=== PATIENT | male | born 1930 | race Caucasian/White ===

== ENCOUNTER 2017-02-28 13:44 | Observation (INO) | payer MEDICARE ==
[2017-02-28 14:13] LABS: ABSOLUTE EOSINOPHILS # (AUTO) 0.4 10^3/uL (0.0-0.6); ABSOLUTE LYMPHOCYTES (AUTO) 1.5 10^3/uL (0.5-4.7); ABSOLUTE MONOCYTES (AUTO) 0.4 10^3/uL (0.1-1.4); ABSOLUTE NEUT (AUTO) 2.5 10^3/uL (1.7-8.2); BASOPHILS % (AUTO) 0.7 % (0-2); EOSINOPHILS % (AUTO) 7.3 % (0-6); HEMATOCRIT 27.7 % (37.9-51.0); HEMOGLOBIN 9.1 g/dL (13.5-17.0); HGB HCT DIFFERENCE -0.4; LYMPHOCYTES % (AUTO) 31.5 % (13-45); MEAN CORPUSCULAR HEMOGLOBIN 32.9 pg (27.0-33.4); MEAN CORPUSCULAR HGB CONC 32.7 g/dL (32.0-36.0); MEAN CORPUSCULAR VOLUME 101 fl (80-97); MONOCYTES % (AUTO) 8.8 % (3-13); RED BLOOD COUNT 2.75 10^6/uL (4.35-5.55); RED CELL DISTRIBUTION WIDTH 16.1 % (11.5-14.0); SEGMENTED NEUTROPHILS % (AUTO) 51.7 % (42-78); WHITE BLOOD COUNT 4.9 10^3/uL (4.0-10.5)
[2017-02-28 14:15] LABS: VENOUS BLOOD BASE EXCESS -2.5 mmol/L; VENOUS BLOOD PCO2 42.7 mmHg (35-63); VENOUS BLOOD PH 7.35 (7.30-7.42)
[2017-02-28 14:20] LABS: PROTHROMBIN TIME 16.6 SEC (11.4-15.4)
[2017-02-28 14:33] LABS: ALANINE AMINOTRANSFERASE 28 U/L (21-72); ALBUMIN 3.5 g/dL (3.5-5.0); ALKALINE PHOSPHATASE 113 U/L (38-126); ANION GAP 11 (5-19); ASPARTATE AMINO TRANSFERASE 35 U/L (17-59); BILIRUBIN,DIRECT 0.3 mg/dL (0.0-0.4); BILIRUBIN,TOTAL 0.3 mg/dL (0.2-1.3); BLOOD UREA NITROGEN 38 mg/dL (7-20); CALCIUM 8.3 mg/dL (8.4-10.2); CARBON DIOXIDE 20 mmol/L (22-30); CHLORIDE 107 mmol/L (98-107); GLUCOSE 73 mg/dL (75-110); POTASSIUM 5.1 mmol/L (3.6-5.0); TOTAL PROTEIN 6.1 g/dL (6.3-8.2)
[2017-02-28] MEDS ORDERED: NORMAL SALINE 1000 ML 1,000 ML IV ONE ×2 (14:38→16:16)
--- NOTE | 2017-02-28 14:38 | ER Document Report ---
ED General - General Chief Complaint: Altered Mental Status Stated Complaint: ALTERED MENTAL STATUS Mode of Arrival: Medic Information source: Patient, Relative, Emergency Med Personnel Notes: 86-year-old male found hypotensive altered mental, patient was found confused and intermittently becomes oriented TRAVEL OUTSIDE OF THE [place] IN LAST 30 DAYS: No - HPI Onset: Just prior to arrival Onset/Duration: Sudden Quality of pain: No pain Severity: Moderate Pain Level: Denies Associated symptoms: Weakness Exacerbated by: Denies Relieved by: Denies Similar symptoms previously: No Recently seen / treated by doctor: No - Related Data Allergies/Adverse Reactions: hydromorphone [From Dilaudid] Allergy (Verified 03/21/16 09:29) lorazepam [From Ativan] Allergy (Verified 03/21/16 04:28) Tetanus Vaccines and Toxoid [Tetanus Vaccines & Toxoid] Allergy (Verified 12:23) Past Medical History - Social History Smoking Status: Never Smoker Cigarette use (# per day): No Chew tobacco use (# tins/day): No Smoking Education Provided: No Family History: Reviewed & Not Pertinent - Past Medical History Cardiac Medical History: Reports: Hx Coronary Artery Disease, Hx Heart Attack, Hx Hypercholesterolemia, Hx Hypertension Pulmonary Medical History: Denies: Hx Asthma, Hx Bronchitis, Hx COPD, Hx Pneumonia Neurological Medical History: Denies: Hx Cerebrovascular Accident, Hx Seizures Musculoskeltal Medical History: Denies Hx Arthritis Psychiatric Medical History: Reports: Hx Depression Past Surgical History: Reports: Hx Appendectomy, Hx Orthopedic Surgery - cervical disc, back x3 - Immunizations Hx Diphtheria, Pertussis, Tetanus Vaccination: Yes Review of Systems - Review of Systems Notes: REVIEW OF SYSTEMS: CONSTITUTIONAL : Denies fever, chills, or sweats. Denies recent illness. EENT: Denies eye, ear, throat, or mouth pain or symptoms. Denies nasal or sinus congestion or discharge. Denies throat, tongue, or mouth swelling or difficulty swallowing. CARDIOVASCULAR: Denies chest pain. Denies palpitations or racing or irregular heart beat. Denies ankle edema. RESPIRATORY: Denies cough, cold, or chest congestion. Denies shortness of breath, difficulty breathing, or wheezing. GASTROINTESTINAL: Denies abdominal pain or distention. Denies nausea, vomiting , or diarrhea. Denies blood in vomitus, stools, or per rectum. Denies black, tarry stools. Denies constipation. GENITOURINARY: Denies difficulty urinating, painful urination, burning, frequency, blood in urine, or discharge. MUSCULOSKELETAL: Denies back or neck pain or stiffness. Denies joint pain or swelling. SKIN: Denies rash, lesions or sores. HEMATOLOGIC : Denies easy bruising or bleeding. LYMPHATIC: Denies swollen, enlarged glands. NEUROLOGICAL: He is altered PSYCHIATRIC: Denies anxiety or stress. Denies depression, suicidal ideation, or homicidal ideation. ALL OTHER SYSTEMS REVIEWED AND NEGATIVE. Dictation was performed using [employer] voice recognition software PHYSICAL EXAMINATION: GENERAL: Elderly male no acute distress HEAD: Atraumatic, normocephalic. EYES: Pupils equal round and reactive to light, extraocular movements intact, sclera anicteric, conjunctiva are normal. ENT: Nares patent, oropharynx clear without exudates. Moist mucous membranes. NECK: Normal range of motion, supple without lymphadenopathy LUNGS: Breath sounds clear to auscultation bilaterally and equal. No wheezes rales or rhonchi. HEART: Regular rate and rhythm without murmurs ABDOMEN: Soft, nontender, nondistended abdomen. No guarding, no rebound. No masses appreciated. Musculoskeletal: Normal range of motion, no pitting or edema. No cyanosis. NEUROLOGICAL: Cranial nerves grossly intact. Normal speech, normal gait. Normal sensory, motor exams oriented to person place PSYCH: Normal mood, normal affect. SKIN: Warm, Dry, normal turgor, no rashes or lesions noted. Physical Exam - Vital signs Vitals: Resp 16 02/28/17 13:44 Course - Re-evaluation Re-evalutation: 02/28/17 14:38 Lab work imaging is pending at this time to evaluate for patient's hypotensionand confusion 02/28/17 17:04 Patient has mild renal insufficiency, family notes this is normal, I gave fluids , patient looks well and family wishes ot take him home i would like ot admit him for observation but they states they rather watch at home I do not feel 100% comfortable with this but will discharge at the request After performing a Medical Screening Examination, I estimate there is LOW risk for INTRACRANIAL HEMORRHAGE, ISCHEMIC CVA, MALIGNANT DYSRHYTHMIA, ACUTE CORONARY SYNDROME, MENINGITIS, PULMONARY EMBOLISM, or SEPSIS thus I consider the discharge disposition reasonable. I have reevaluated this patient multiple times and no significant life threatening changes are noted. The patient and I have discussed the diagnosis and risks, and we agree with discharging home with close follow-up with the understanding that symptoms and presentations can change. We also discussed returning to the Emergency Department immediately if new or worsening symptoms occur. We have discussed the symptoms which are most concerning (e.g., changing or worsening pain, weakness, vomiting, fever) that necessitate immediate return. - Vital Signs Vital signs: Temp Pulse Resp BP Pulse Ox 98.2 F 16 122/90 H 95 02/28/17 15:00 02/28/17 16:20 02/28/17 16:20 02/28/17 16:20 - Laboratory Result Diagrams: 02/28/17 13:51 02/28/17 13:51 Laboratory results interpreted by me: 02/28/17 02/28/17 02/28/17 13:51 13:51 13:51 RBC 2.75 L Hgb 9.1 L Hct 27.7 L MCV 101 H RDW 16.1 H Eosinophils % 7.3 H PT 16.6 H Potassium 5.1 H Carbon Dioxide 20 L BUN 38 H Creatinine 1.60 H Est GFR ( Amer) 50 L Est GFR (Non-Af Amer) 41 L Glucose 73 L Calcium 8.3 L Total Protein 6.1 L Urine Blood Ur Leukocyte Esterase 02/28/17 16:20 RBC Hgb Hct MCV RDW Eosinophils % PT Potassium Carbon Dioxide BUN Creatinine Est GFR ( Amer) Est GFR (Non-Af Amer) Glucose Calcium Total Protein Urine Blood SMALL H Ur Leukocyte Esterase SMALL H - Diagnostic Test Radiology reviewed: Image reviewed, Reports reviewed - EKG Interpretation by Me EKG shows normal: Sinus rhythm, [place], Intervals, QRS Complexes Discharge - Discharge Clinical Impression: Confusion, Acute renal insufficiency Condition: Fair Disposition: HOME, SELF-CARE Additional Instructions: Please return immediately if there are any other concerns Referrals: KELLEN TIDWELL MD [Primary Care Provider] - Follow up tomorrow
--- NOTE | 2017-02-28 15:00 | RADIOLOGY REPORT (SQ) ---
EXAM DESCRIPTION: CHEST SINGLE VIEW COMPLETED DATE/TIME: 02/28/2017 2:45 pm REASON FOR STUDY: bed t1 sepsis protocol COMPARISON: 03/21/2016. EXAM PARAMETERS: NUMBER OF VIEWS: One view. TECHNIQUE: Single frontal radiographic view of the chest acquired. RADIATION DOSE: NA LIMITATIONS: None. FINDINGS: LUNGS AND PLEURA: No opacities, masses or pneumothorax. No pleural effusion. MEDIASTINUM AND HILAR STRUCTURES: No masses. Contour normal. HEART AND VASCULAR STRUCTURES: Heart upper limits of normal in size. Normal vasculature. BONES: No acute findings. HARDWARE: Hardware in the cervical spine. OTHER: No other significant finding. IMPRESSION: NO ACUTE RADIOGRAPHIC FINDING IN THE CHEST. TECHNICAL DOCUMENTATION: JOB ID: [id number]
--- NOTE | 2017-02-28 15:48 | RADIOLOGY REPORT (SQ) ---
EXAM DESCRIPTION: CT HEAD WITHOUT COMPLETED DATE/TIME: 02/28/2017 3:38 pm REASON FOR STUDY: syncope COMPARISON: 07/11/2015 TECHNIQUE: Axial images acquired through the brain without intravenous contrast. Images reviewed wi th bone, brain and subdural windows. Images stored on PACS. All CT scanners at this facility use dose modulation, iterative reconstruction, and/or weight based d osing when appropriate to reduce radiation dose to as low as reasonably achievable (ALARA). [facility]: Dose Right [facility]: CareDose [facility]: Dose Right [facility]: Teradose 4D [facility]: [employer] RADIATION DOSE: Up-to-date CT equipment and radiation dose reduction techniques were employed. CTDIv ol: 62.1 mGy. DLP: 1163 mGy-cm.mGy. LIMITATIONS: None. FINDINGS: VENTRICLES: Prominent. CEREBRUM: No masses. No hemorrhage. No midline shift. Areas of low density in the white matter mos t likely due to chronic micro-vascular ischemic change. No evidence for acute infarction. CEREBELLUM: No masses. No hemorrhage. No alteration of density. No evidence for acute infarction. EXTRAAXIAL SPACES: Age-related involutional change. No fluid collections. No masses. ORBITS AND GLOBE: No intra- or extraconal masses. Normal contour of globe without masses. CALVARIUM: No fracture. PARANASAL SINUSES: No fluid or mucosal thickening. SOFT TISSUES: No mass or hematoma. OTHER: No other significant finding. IMPRESSION: CHRONIC CHANGES OF ATROPHY AND MICROVASCULAR ISCHEMIA. NO ACUTE PROCESS. TECHNICAL DOCUMENTATION: JOB ID: [id number] Quality ID # [id number]: Final reports with documentation of one or more dose reduction techniques (e.g., Au tomated exposure control, adjustment of the mA and/or kV according to patient size, use of iterative reconstruction technique) 2010 [employer]- All Rights Reserved
[2017-02-28 16:36] LABS: APPEARANCE,URINE CLEAR; BILIRUBIN,URINE NEGATIVE (NEGATIVE); GLUCOSE, URINE NEGATIVE (NEGATIVE); KETONES,URINE NEGATIVE (NEGATIVE); LEUKOCYTE ESTERASE,URINE SMALL (NEGATIVE); NITRITE,URINE NEGATIVE (NEGATIVE); PROTEIN,URINE NEGATIVE (NEGATIVE); URINE SPECIFIC GRAVITY 1.006; UROBILINOGEN,URINE NEGATIVE mg/dL (<2.0)
--- NOTE | 2017-02-28 19:08 | EKG REPORT ---
SEVERITY:- ABNORMAL ECG - SINUS RHYTHM FIRST DEGREE AV BLOCK LEFT BUNDLE BRANCH BLOCK [facility] : Confirmed by: Chuck Kurtz MD 28-Feb-2017 19:06:35
[2017-02-28 19:49] LABS: ADD ON TESTING BLD IN LAB ACKNOWLEDGE
[2017-02-28 20:05] LABS: MAGNESIUM 1.9 mg/dL (1.6-2.3)
[2017-02-28 20:06] LABS: ALCOHOL < 10 mg/dL (NONE DETECTED)
[2017-02-28 20:12] LABS: URINE BARBITURATES SCREEN NEGATIVE; URINE METHADONE SCREEN NEGATIVE; URINE OPIATES LOW NEGATIVE; URINE PHENCYCLIDINE SCREEN NEGATIVE
[2017-02-28] MEDS ORDERED: GLUCAGON,HUMAN RECOMB 1 MG INJ IM PRN (21:06)
[2017-02-28] MEDS ORDERED: INSULIN LISPRO 100 UNIT/ML 3 ML VIAL SUBCUT PRN (21:06)
[2017-02-28] MEDS ORDERED: DEXTROSE 40% GEL 15 GM TUBE PO PRN ×2 (21:06)
[2017-02-28] MEDS ORDERED: DEXTROSE 50%-WATER 25 GM/50 ML DISP.SYRIN IV PRN ×2 (21:06)
[2017-02-28] MEDS ORDERED: PROMETHAZINE HCL 25 MG TABLET PO PRN (21:20)
--- NOTE | 2017-02-28 21:56 | PDOC H&P ---
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 Patient has been discussed with emergency room physician who evaluated the patient. Patient is oriented to the location and year, but is not quite certain why he is in the emergency room. He also seems a bit confused on occasion with basic questions and is able to provide no history whatsoever in terms of acute events. In terms of review of systems, personal habits, family history, etc., daughter is present at his side, with his approval, and does provide additional and corroborating information to some questions. Old inpatient records are reviewed. Patient was doing quite well this morning, in his usual state of affairs. Apparently sometime this afternoon, he went in to take a shower. When he did not come out of the bathroom for a time, daughter knocked on the bathroom door to check on him. When he did not respond, she entered the bathroom and found him "collapsed" in the shower, with approximately a 15 minute episode of "shaking." No fecal or urinary incontinence. No tongue biting. No outward evidence of tonic-clonic seizure activity. No seizure history. 2 episodes of diarrhea approximately 24 hours ago. Has chronic mild dysuria from prior external beam radiation treatment of prostate cancer in the . However, no nausea vomiting, or fever. No headache, chest or abdominal pain. Daughter feels that he is almost back to his usual self, so to speak. , who was present earlier, but has since gone home, thinks that patient may have taken his Ambien instead of his oxycodone, which he takes for chronic back pain. Patient manages his own medications at home. No tobacco use since the . Denies illicit drug use. However, does admit to drinking probably a bottle of wine every day; recently may have switched to the bigger bottles of wine. Hospitalized on our service March 21- of last year, with discharge diagnoses including revision of periprosthetic fracture, left femur. History and physical and discharge summary have been reviewed. Of note, he is status post bilateral total hip replacement, with subsequent infection of both prostheses, necessitating removal and revision. Apparently was hospitalized for a number of months, in the intensive care unit, severely ill due to the infection. Currently resting quietly, without specific complaint. Laboratory results are listed in [facility] and are reviewed. X-ray summary results are listed below, with full report(s) reviewed. . EKG reviewed and compared to a prior tracing from March 25 of last year. Social history/personal habits: . Lives with . 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 Personal habits as noted above. Allergies/adverse reactions are listed in [facility] and are reviewed. Home medications initially autopopulated into [facility] may not accurately reflect patient's true medications, dosages, and/or frequencies. electronic systems technician has reconciled medications. REVIEW OF SYSTEMS: Constitutional: See history and present illness. Eyes: Wears glasses ENT: Occasional mild dysphagia with aspiration of pills only; no such problem with solid or liquid food. Encouraged him to notify Dr. Cedillo of this if he has not. Partial hearing loss. Pulmonary: No current complaints. Cardiovascular: No chest pain. See history and present illness. Gastrointestinal: No current complaints, including nausea or vomiting. Skin: No current complaints, including rashes. Hematologic: Easy bruising. Neurologic: See history and present illness. 3-4 month history of intermittent mild numbness and tingling involving his left hand. Musculoskeletal: Chronic back pain. Psychiatric: Mild anxiety and depression. Denies suicidal or homicidal ideation. Endocrine: No current complaints, including polyuria. Genitourinary: See history and present illness. PHYSICAL EXAMINATION: 5 feet 9 inches tall. 77.1 kg. BMI 25.1 kg/m. Pulse 73 and regular. 99% saturation on room air. Respirations are 14 and unlabored. Blood pressure 125/ 58. Temperature 97.4. Well-nourished well-developed elderly male who appears a number of years younger than his stated age. Pleasant awake alert and cooperative. Appears perhaps slightly fatigued. Daughter is present at his side; patient approves. Skin is warm and dry. No grossly obvious evidence of rash in areas of skin examined. No subcutaneous nodules palpated. ENT: Perhaps mildly hard of hearing to normal conversation. Tongue midline on protrusion pink and slightly tacky. Eyes: No scleral icterus. Pupils equal and reactive to light at 4 mm. [place] conjunctivae. No raccoon eyes. Neck is supple and nontender to gentle active range of motion and palpation. Midline trachea. No palpable thyroid nodule mass enlargement or tenderness. Lymphatic: No palpable cervical or clavicular nodes. Neck and lymphatic exams limited by patient body habitus. Psychiatric: Reasonable insight into chronic medical issues. Oriented to time and location. See history and present illness. Lungs: Auscultation reveals clear and equal breath sounds bilaterally. No use of accessory respiratory muscles. Cardiovascular: Heart regular rate and rhythm, without gallop murmur or rub. No carotid or abdominal aortic bruits. No ankle or pedal edema. Faintly palpable posterior tibial pulses. Abdomen:soft slightly distended nontender with positive bowel sounds. Unable to adequately evaluate abdomen for masses or organomegaly due to distention. Extremities: Hands and feet are warm and dry. No calf tenderness to compression. No grossly obvious visual evidence of extremity swelling. Gentle manipulation of upper and lower extremities fails to reveal any obvious evidence of injury or instability to involved major joints, although some slight decrease range of motion left lower extremity due to chronic pain and stiffness with his left hip. Neurologic: Cranial Nerves II through XII are grossly intact. Light touch intact at face, upper and lower extremities, with the exception of very slight decrease in light touch sensation on the dorsum of his left hand; see above comments under review of systems. Motor function of major muscle groups upper and lower extremities 5 over 5 and symmetric. Patellar reflexes absent. Absent Babinski. No nystagmus. Past Medical History Cardiac Medical History: Reports: Atrial Fibrillation, Coronary Artery Disease, Myocardial Infarction, Hyperlipidema, Hypertension Denies: Congestive Heart Failure, DVT, Pulmonary Embolism Pulmonary Medical History: Reports: Sleep Apnea - Does not wear CPAP Denies: Asthma, Bronchitis, Chronic Obstructive Pulmonary Disease (COPD), Pneumonia EENT Medical History: Reports: Eyes - Glasses, Ears - Partial hearing loss, Throat - Occasional mild dysphagia with aspiration to pills only Neurological Medical History: Reports: Other - Questionable prior TIA. Describes problems with his 7th cranial nerve on the left, affecting his smile at times. Denies: Hemorrhagic CVA, Ischemic CVA, Seizures Endocrine Medical History: Reports: Diabetes Mellitus Type 2 - Diet controlled, Hypothyroidism Denies: Diabetes Mellitus Type 1, Hyperthyroidism Renal/ Medical History: Reports: Chronic Kidney Disease Malignancy Medical History: Reports: Other - Prostate cancer status post external beam radiation, 1990s GI Medical History: Denies: Cirrhosis, Gastroesophageal Reflux Disease, Hepatitis, Peptic Ulcer Disease Musculoskeltal Medical History: Reports: Arthritis, Other - Chronic back pain Skin Medical History: Reports: None Psychiatric Medical History: Reports: Depression, General Anxiety Disorder, Other - Alcohol use, approximately a bottle of wine per day. Denies: Substance Abuse, Tobacco Dependency Hematology: Reports: Anemia, Other - Easy bruising Infectious Medical History: Reports: Methicillin-Resistant Staph Aureus Denies: Clostridium Difficile, Hepatitis B, Hepatitis C Past Surgical History Past Surgical History: Reports: Appendectomy, Hip Replacement - Bilateral, with extraction revision and replacement due to infection, Knee Replacement - Bilateral, Orthopedic Surgery - cervical disc, back x3;, Tonsillectomy Social History Information Source: Patient, Relative - Daughter, Emergency Med Personnel, REPLACED BY [facility] Records Lives with: Spouse/Significant other Smoking Status: Former Smoker Hx Recreational Drug Use: No Drugs: None - Advance Directive Resuscitation Status: Full Code Surrogate healthcare decision maker:: Family History Family History: Reviewed & Not Pertinent Parental Family History Reviewed: Yes - Mother of Alzheimer's; father of lung cancer. Children Family History Reviewed: Yes - Healthy Sibling(s) Family History Reviewed.: NA Medication/Allergy Home Medications: Amiodarone HCl [Cordarone 200 mg Tablet] 200 mg PO DAILY 02/28/17 Atorvastatin Calcium [Lipitor 10 mg Tablet] 10 mg PO QHS 02/28/17 Escitalopram Oxalate [Lexapro] 20 mg PO DAILY 02/28/17 Levothyroxine Sodium [Synthroid 0.15 mg Tablet] 150 mcg PO DAILY 02/28/17 Mirabegron [Myrbetriq] 50 mg PO Q2D 02/28/17 Oxycodone HCl [Oxy-Ir 5 mg Tablet] 5 mg PO Q6HP PRN 02/28/17 Rivaroxaban [Xarelto 10 mg Tablet] 10 mg PO DAILY 02/28/17 Zolpidem Tartrate [Ambien] 10 mg PO QHS 02/28/17 Amox Tr/Potassium Clavulanate [Augmentin 875-125 mg Tablet] 1 tab PO BID #8 tablet 03/02/17 Allergies/Adverse Reactions: hydromorphone [From Dilaudid] Allergy (Verified 03/01/17 05:06) lorazepam [From Ativan] Allergy (Verified 03/21/16 04:28) Tetanus Vaccines and Toxoid [Tetanus Vaccines & Toxoid] Allergy (Verified 12:23) Physical Exam Vital Signs: Temp Pulse Resp BP Pulse Ox 97.4 F 16 134/78 H 99 02/28/17 17:00 02/28/17 20:01 02/28/17 20:01 02/28/17 20:01 Results Impressions: Chest X-Ray 02/28/17 13:48 IMPRESSION: NO ACUTE RADIOGRAPHIC FINDING IN THE CHEST. Head CT 02/28/17 15:09 IMPRESSION: CHRONIC CHANGES OF ATROPHY AND MICROVASCULAR ISCHEMIA. NO ACUTE PROCESS. Assessment & Plan - Diagnosis (1) Alcohol use Is this a current diagnosis for this admission?: YesPlan: Intravenous thiamine tonight; daily thiamine, folic acid, multivitamin starting tomorrow. Observe closely for signs of withdrawal. (2) History of MRSA infection Is this a current diagnosis for this admission?: YesPlan: Contact precautions (3) Abnormal urinalysis Is this a current diagnosis for this admission?: YesPlan: Urine culture. We will forego antibiotics at this point in time. (4) Acute encephalopathy Is this a current diagnosis for this admission?: YesPlan: Suspect medication related. However, given his age and possible history of previous TIA, will proceed as for TIA/stroke protocol. Multiple imaging procedures, intracranial, vascular, and cardiac. lipid panel. Permissive hypertension parameters to be adjusted, due to his anticoagulated status. Vital sign parameters listed in chart. Patient is a full code. I have strongly urged patient not to get out of bed without calling nursing staff, to avoid a fall with injury. Knee high SCDs for DVT prophylaxis; with patient on Xarelto, we will forego Lovenox or heparin at this point in time. Daughter understands that underlying confusion may very well worsen while he is in the hospital. Impression and plans were discussed with patient and daughter, both of whom concur Time spent in evaluation and management of patient: 75 minutes (5) Elevated troponin Is this a current diagnosis for this admission?: YesPlan: No outward evidence of acute coronary syndrome, but will trend troponins. (6) Hyperkalemia Is this a current diagnosis for this admission?: YesPlan: Follow-up chemistry. (7) Paresthesia of left upper extremity Is this a current diagnosis for this admission?: Yes (8) Anemia Qualifiers: Anemia type: unspecified type Qualified Code(s): D64.9 - Anemia, unspecified Is this a current diagnosis for this admission?: YesPlan: Follow-up CBC with differential. No need for transfusion at present time. (9) Anticoagulated Is this a current diagnosis for this admission?: YesPlan: Resume home medications as appropriate once these have been determined and reviewed. (10) Atrial fibrillation Qualifiers: Atrial fibrillation type: unspecified Qualified Code(s): I48.91 - Unspecified atrial fibrillation Is this a current diagnosis for this admission?: YesPlan: Resume home medications as appropriate once these have been determined and reviewed. (11) CAD (coronary artery disease) Qualifiers: Coronary Disease-Associated Artery/Lesion type: [place] artery [place] vs. transplanted heart: [place] heart Associated angina: without angina Qualified Code(s): I25.10 - Atherosclerotic heart disease of [place] coronary artery without angina pectoris Is this a current diagnosis for this admission?: YesPlan: Resume home medications as appropriate once these have been determined and reviewed. (12) CKD (chronic kidney disease), stage III Is this a current diagnosis for this admission?: Yes (13) Diabetes mellitus type 2 in nonobese Is this a current diagnosis for this admission?: YesPlan: Accu-Cheks with appropriate sliding scale coverage. (14) JESSICA (obstructive sleep apnea) Is this a current diagnosis for this admission?: YesPlan: CPAP. - Time Medications reviewed and adjusted accordingly: Yes Anticipated discharge: Home Within: within 24 hours
[2017-02-28] MEDS ORDERED: ASPIRIN 81 MG TABLET, ENT COATED PO ONE (22:00)
[2017-02-28 22:01] LABS: ANION GAP 9 (5-19); BLOOD UREA NITROGEN 35 mg/dL (7-20); CALCIUM 8.3 mg/dL (8.4-10.2); CARBON DIOXIDE 22 mmol/L (22-30); CHLORIDE 110 mmol/L (98-107); CREATININE RESULT 1.47 mg/dL (0.52-1.25); GLUCOSE 82 mg/dL (75-110); POTASSIUM 4.6 mmol/L (3.6-5.0); SODIUM 140.5 mmol/L (137-145)
[2017-02-28] MEDS ORDERED: THIAMINE HCL 100 MG in NORMAL SALINE 50 ML IV ONE (22:30)
[2017-03-01] MEDS: NORMAL SALINE 1000 ML 1,000 ML IV PRN ×2 (02:18→21:48)
[2017-03-01] MEDS: ACETAMINOPHEN 325 MG TABLET PO PRN ×3 (02:19→22:59)
[2017-03-01] MEDS: ATORVASTATIN CALCIUM 10 MG TABLET PO SCH ×2 (02:20→21:48)
[2017-03-01 03:33] LABS: ABSOLUTE EOSINOPHILS # (AUTO) 0.4 10^3/uL (0.0-0.6); ABSOLUTE LYMPHOCYTES (AUTO) 1.4 10^3/uL (0.5-4.7); ABSOLUTE MONOCYTES (AUTO) 0.4 10^3/uL (0.1-1.4); ABSOLUTE NEUT (AUTO) 3.6 10^3/uL (1.7-8.2); BASOPHILS % (AUTO) 0.7 % (0-2); EOSINOPHILS % (AUTO) 6.7 % (0-6); HEMATOCRIT 27.8 % (37.9-51.0); HGB HCT DIFFERENCE -0.8; LYMPHOCYTES % (AUTO) 23.3 % (13-45); MEAN CORPUSCULAR HEMOGLOBIN 33.2 pg (27.0-33.4); MEAN CORPUSCULAR HGB CONC 32.5 g/dL (32.0-36.0); MEAN CORPUSCULAR VOLUME 102 fl (80-97); MONOCYTES % (AUTO) 7.6 % (3-13); RED BLOOD COUNT 2.73 10^6/uL (4.35-5.55); RED CELL DISTRIBUTION WIDTH 16.5 % (11.5-14.0); SEGMENTED NEUTROPHILS % (AUTO) 61.7 % (42-78); WHITE BLOOD COUNT 5.8 10^3/uL (4.0-10.5)
[2017-03-01 04:12] LABS: ANION GAP 7 (5-19); BLOOD UREA NITROGEN 34 mg/dL (7-20); CALCIUM 8.2 mg/dL (8.4-10.2); CARBON DIOXIDE 21 mmol/L (22-30); CHLORIDE 111 mmol/L (98-107); CHOLESTEROL 139.23 mg/dL (0-200); CREATININE RESULT 1.42 mg/dL (0.52-1.25); Direct HDL 56 mg/dL (>40); GLUCOSE 89 mg/dL (75-110); POTASSIUM 4.5 mmol/L (3.6-5.0); TRIGLYCERIDES 136 mg/dL (<150)
[2017-03-01 04:23] LABS: DIRECT LDL 60 mg/dL (<100)
[2017-03-01] MEDS ORDERED: OXYCODONE HCL IR 5 MG TABLET PO ONE (05:04)
[2017-03-01] MEDS ORDERED: ASPIRIN 81 MG TABLET, CHEWABLE ONE (05:13)
[2017-03-01] MEDS ORDERED: (PENDING PHARMACY ID) (Mirabegron [Myrbetriq] 50 MG) PO SCH (06:15)
[2017-03-01] MEDS ORDERED: LORAZEPAM INJ 2 MG/1 ML VIAL IV PRN (08:19)
[2017-03-01] MEDS ORDERED: ALPRAZOLAM 0.5 MG TABLET PO PRN (08:48)
--- NOTE | 2017-03-01 10:08 | PDOC PROGRESS REPORT ---
Subjective Progress Note for:: 03/01/17 Subjective:: Patient does not remember what happened prior to being in the emergency room. It was reported to him that he was having some mild shaking both upper extremities but none of the lower extremities or generalized tonic-clonic activity. Patient denies feeling dizzy prior to the episode. Reportedly he was on his wheelchair when the episode happened. No reported fall. Patient was trying to get up from the chair when the episode happened and he could not remember anything from then. Reports history of aortic stenosis as well as carotid stenosis of 50-69%. Physical Exam Vital Signs: Temp Pulse Resp BP Pulse Ox 98.0 F 86 18 133/86 H 98 03/01/17 07:18 03/01/17 08:00 03/01/17 08:00 03/01/17 08:00 03/01/17 08:00 Intake & Output 02/28/17 03/01/17 03/02/17 06:59 06:59 06:59 Intake Total 200 Output Total 400 Balance -200 Weight 77.4 kg General appearance: PRESENT: no acute distress, cooperative Eye exam: PRESENT: conjunctiva pale, EOMI Mouth exam: PRESENT: moist, neck supple Neck exam: PRESENT: carotid bruit - Left. ABSENT: JVD Respiratory exam: PRESENT: clear to auscultation neeta. ABSENT: rhonchi, wheezes Cardiovascular exam: PRESENT: RRR, systolic murmur - Aortic area GI/Abdominal exam: PRESENT: soft. ABSENT: distended, tenderness Extremities exam: ABSENT: pedal edema Neurological exam: PRESENT: alert, awake, oriented to situation Skin exam: PRESENT: dry, warm. ABSENT: cyanosis Results Laboratory Results: 03/01/17 03:23 03/01/17 03:23 02/28/17 03/01/17 03/01/17 21:28 03:23 03:23 WBC 5.8 RBC 2.73 L Hgb 9.0 L Hct 27.8 L MCV 102 H MCH 33.2 MCHC 32.5 RDW 16.5 H Plt Count 155 Seg Neutrophils % 61.7 Lymphocytes % 23.3 Monocytes % 7.6 Eosinophils % 6.7 H Basophils % 0.7 Absolute Neutrophils 3.6 Absolute Lymphocytes 1.4 Absolute Monocytes 0.4 Absolute Eosinophils 0.4 Absolute Basophils 0.0 Sodium 140.5 139.0 Potassium 4.6 4.5 Chloride 110 H 111 H Carbon Dioxide 22 21 L Anion Gap 9 7 BUN 35 H 34 H Creatinine 1.47 H 1.42 H Est GFR ( Amer) 55 L 57 L Est GFR (Non-Af Amer) 45 L 47 L Glucose 82 89 Calcium 8.3 L 8.2 L Triglycerides 136 Cholesterol 139.23 LDL Cholesterol Direct 60 VLDL Cholesterol 27.0 HDL Cholesterol 56 02/28/17 03/01/17 21:28 03:23 Troponin I 0.053 0.060 Impressions: Chest X-Ray 02/28/17 13:48 IMPRESSION: NO ACUTE RADIOGRAPHIC FINDING IN THE CHEST. Head CT 02/28/17 15:09 IMPRESSION: CHRONIC CHANGES OF ATROPHY AND MICROVASCULAR ISCHEMIA. NO ACUTE PROCESS. Assessment & Plan - Diagnosis (2) Elevated TSH Is this a current diagnosis for this admission?: Yes (3) Abnormal urinalysis Is this a current diagnosis for this admission?: Yes (4) Syncope Qualifiers: Syncope type: unspecified Qualified Code(s): R55 - Syncope and collapse Is this a current diagnosis for this admission?: Yes (5) Anemia Qualifiers: Anemia type: unspecified type Qualified Code(s): D64.9 - Anemia, unspecified Is this a current diagnosis for this admission?: Yes (6) Atrial fibrillation Qualifiers: Atrial fibrillation type: unspecified Qualified Code(s): I48.91 - Unspecified atrial fibrillation Is this a current diagnosis for this admission?: Yes (7) CAD (coronary artery disease) Qualifiers: Coronary Disease-Associated Artery/Lesion type: [place] artery [place] vs. transplanted heart: [place] heart Associated angina: without angina Qualified Code(s): I25.10 - Atherosclerotic heart disease of [place] coronary artery without angina pectoris Is this a current diagnosis for this admission?: Yes (8) CKD (chronic kidney disease), stage III Is this a current diagnosis for this admission?: Yes (9) Diabetes mellitus type 2 in nonobese Is this a current diagnosis for this admission?: Yes (10) Dyslipidemia Is this a current diagnosis for this admission?: Yes (11) JESSICA (obstructive sleep apnea) Is this a current diagnosis for this admission?: Yes (12) Aortic stenosis Qualifiers: Cardiac valve disease etiology: etiology unspecified Qualified Code( s): I35.0 - Nonrheumatic aortic (valve) stenosis Is this a current diagnosis for this admission?: Yes (13) Carotid atherosclerosis Qualifiers: Laterality: left Qualified Code(s): I65.22 - Occlusion and stenosis of left carotid artery Is this a current diagnosis for this admission?: Yes - Time Time Spent with patient: 25-34 minutes - Plan Summary Plan Summary: Patient reports having carotid Doppler done 2 weeks ago. We will obtain results. Unsure about echocardiogram. We will check free T4. We will likewise give a dose of antibiotic and follow urine culture. Awaiting MRI of the brain. Continue supportive care. His drug screen was negative for benzodiazepines or opiates.
[2017-03-01] MEDS: MULTIVITAMIN TABLET PO SCH (10:52)
[2017-03-01] MEDS: THIAMINE HCL 100 MG TABLET PO SCH (10:52)
[2017-03-01] MEDS: BENAZEPRIL HCL 20 MG TABLET PO SCH (10:52)
[2017-03-01] MEDS: ESCITALOPRAM OXALATE 10 MG TABLET PO SCH (10:53)
[2017-03-01] MEDS: ASPIRIN 81 MG TABLET, ENT COATED PO SCH (10:53)
[2017-03-01] MEDS: AMIODARONE HCL 200 MG TABLET PO SCH (10:53)
[2017-03-01] MEDS: FOLIC ACID 1 MG TABLET PO SCH (10:54)
[2017-03-01] MEDS: LEVOTHYROXINE SODIUM 0.15 MG TABLET PO SCH (10:54)
[2017-03-01] MEDS ORDERED: RIVAROXABAN 10 MG TABLET PO ONE (11:00)
[2017-03-01] MEDS ORDERED: OXYCODONE HCL IR 5 MG TABLET PO PRN (11:55)
[2017-03-01] MEDS ORDERED: CEFTRIAXONE 1 GM/D5W RTU 50 ML IV SCH (12:00)
--- NOTE | 2017-03-01 16:22 | RADIOLOGY REPORT (SQ) ---
EXAM DESCRIPTION: MRI HEAD WITHOUT COMPLETED DATE/TIME: 03/01/2017 2:55 pm REASON FOR STUDY: AMS D64.9 ANEMIA, UNSPECIFIED E78.5 HYPERLIPIDEMIA, UNSPECIFIED E03.9 HYPOTHYRO IDISM, UNSPECIFIED COMPARISON: CT brain dated 02/28/2017 TECHNIQUE: Multiplanar imaging includes non-contrasted T1, T2, FLAIR, and diffusion with ADC map seq uences. Images stored on PACS. LIMITATIONS: None. FINDINGS: ANATOMY: No anomalies. Normal vascular flow voids. Pituitary fossa normal. CSF SPACES: Atrophy induced prominence of ventricles and CSF spaces. CEREBRUM: High signal intensity lesions scattered throughout the white matter on FLAIR imaging with d istribution suggesting micro-vascular ischemic changes. No evidence of hemorrhage, mass, or extraaxi al fluid collection. POSTERIOR FOSSA: No signal alteration. No hemorrhage. No edema, masses or mass effect. Internal breanne tory canals, cerebello-pontine angles, mastoids normal. DIFFUSION IMAGING: Negative for acute or sub-acute infarction. ORBITS: No masses. Globes normal. PARANASAL SINUSES: No fluid levels. Mucosa normal. OTHER: No other significant finding. IMPRESSION: ATROPHY AND CHRONIC MICRO-VASCULAR ISCHEMIC CHANGES. OTHERWISE NORMAL MRI OF THE BRAIN W ITHOUT INTRAVENOUS GADOLINIUM CONTRAST. TECHNICAL DOCUMENTATION: JOB ID: [id number] [employer]- All Rights Reserved
--- NOTE | 2017-03-02 09:16 | XCELERA REPORT ---
[address] [address] Transthoracic Echocardiogram Report Name: CARINE ORNELAS Age: 86 yrs Gender: Male : 1930 Patient Status: Inpatient Patient Location: [id number] Study Date: 03/01/2017 03:03 PM Height: 66 in Weight: 170 lb BSA: 1.9 m2 Procedure: A two-dimensional transthoracic echocardiogram with color flow and Doppler was performed. Study Quality: Technically suboptimal. Reason For Study: SYNCOPE History: SYNCOPE. Ordering Physician: BARBARA FRAUSTO Performed By: Starla Kelley Interpretation Summary The left ventricle is normal in size. There is normal left ventricular wall thickness. LV EF is 55% Left ventricular systolic function is low normal. Doppler measurements suggest normal left ventricular diastolic function The left ventricular wall motion is normal. The right ventricle is not well visualized secondary to technical limitations The right ventricle is grossly normal size. The right atrium is normal. The left atrial size is normal. cANNOT ASSESS PRESENCE OR ABVSENCE OF vsd,pfo, OR asd. There is mild mitral annular calcification. There is no evidence of mitral valve prolapse. There is no mitral valve stenosis. There is a moderate amount of mitral regurgitation There is no aortic valvular vegetation. There is aortic sclerosis without stenosis. There is no aortic valve stenosis There is no LVOT obstruction. No aortic regurgitation is present. There is no tricuspid stenosis. There is a trace amount of tricuspid regurgitation Right ventricular systolic pressure is normal. RVSP is 24 to 29 mm of Hg , with RA mean of 5 to 10. There is no pericardial effusion. MMode/2D Measurements \T\ Calculations RVDd: 3.3 cm LVIDd: 4.5 cm FS: 17.0 % Ao root diam: IVSd: 0.98 cm LVIDs: 3.7 cm EDV(Teich): 2.5 cm LVPWd: 0.97 cm 91.7 ml Ao root area: ESV(Teich): 59.0 ml 4.8 cm2 EF(Teich): 35.7 % EDV(MOD-sp4): SV(MOD-sp4): 126.5 ml 40.6 ml ESV(MOD-sp4): 86.0 ml EF(MOD-sp4): 32.1 % Doppler Measurements \T\ Calculations MV E max shelley: MV dec slope: Ao V2 max: LV V1 max P.1 cm/sec 177.7 cm/sec 2.5 mmHg MV A max shelley: 549.8 cm/sec2 Ao max PG: LV V1 max: 54.9 cm/sec MV dec time: 12.6 mmHg 79.2 cm/sec MV E/A: 2.2 0.22 sec PA V2 max: TR max shelley: 78.8 cm/sec 216.1 cm/sec PA max P.5 mmHg TR max P.7 mmHg Left Ventricle The left ventricle is normal in size. There is normal left ventricular wall thickness. LV EF is 55%. Left ventricular systolic function is low normal. Doppler measurements suggest normal left ventricular diastolic function. The left ventricular wall motion is normal. There is no thrombus. Right Ventricle The right ventricle is not well visualized secondary to technical limitations. The right ventricle is grossly normal size. Atria The right atrium is normal. The left atrial size is normal. cANNOT ASSESS PRESENCE OR ABVSENCE OF vsd,pfo, OR asd. Mitral Valve There is mild mitral annular calcification. There is no evidence of mitral valve prolapse. There is no vegetation seen on the mitral valve. There is no mitral valve stenosis. There is a moderate amount of mitral regurgitation. Aortic Valve There is no aortic valvular vegetation. There is aortic sclerosis without stenosis. There is no aortic valve stenosis. There is no LVOT obstruction. No aortic regurgitation is present. Tricuspid Valve There is no tricuspid stenosis. There is a trace amount of tricuspid regurgitation. Right ventricular systolic pressure is normal. RVSP is 24 to 29 mm of Hg , with RA mean of 5 to 10. Pulmonic Valve The pulmonic valve is not well visualized. Great Vessels The aortic root is not well visualized but is probably normal size. Effusions There is no pericardial effusion. : BARBARA FRAUSTO > Ade Loza
[2017-03-02] MEDS ORDERED: RIVAROXABAN 10 MG TABLET PO SCH (10:00)
[2017-03-02] MEDS: ASPIRIN 81 MG TABLET, ENT COATED PO SCH (11:24)
[2017-03-02] MEDS: THIAMINE HCL 100 MG TABLET PO SCH (11:24)
[2017-03-02] MEDS: ESCITALOPRAM OXALATE 10 MG TABLET PO SCH (11:24)
[2017-03-02] MEDS: AMIODARONE HCL 200 MG TABLET PO SCH (11:25)
[2017-03-02] MEDS: BENAZEPRIL HCL 20 MG TABLET PO SCH (11:25)
[2017-03-02] MEDS: MULTIVITAMIN TABLET PO SCH (11:25)
[2017-03-02] MEDS: FOLIC ACID 1 MG TABLET PO SCH (11:25)
[2017-03-02] MEDS: LEVOTHYROXINE SODIUM 0.15 MG TABLET PO SCH (11:26)
--- NOTE | 2017-03-02 12:23 | Physician Advisory Note ---
Physician Advisor ProgressNote .: Pursuant to the plan for [facility], I have reviewed the medical record for this patient. Physician Advisor Statement: Please document: 1. Most likely cause of syncope 2. type Afib - paroxysmal or persistent 3. most likely type anemia - ?nutritional Fe defic? chr blood loss Fe defic from ____? Nutritional ____ defic? Thanks! CK
[2017-03-02 12:40] VITALS: BP 137/64
--- NOTE | 2017-03-02 15:39 | PDOC DISCHARGE SUMMARY ---
General - Admit/Disc Date/PCP Admission Date/Primary Care Provider: 02/28/17 21:07 KELLEN TIDWELL Discharge Date: 03/02/17 - Discharge Diagnosis (1) Syncope Is this a current diagnosis for this admission?: Yes (2) UTI (urinary tract infection) Is this a current diagnosis for this admission?: Yes (3) Anemia Is this a current diagnosis for this admission?: Yes (4) Elevated TSH Is this a current diagnosis for this admission?: Yes (5) Atrial fibrillation Is this a current diagnosis for this admission?: Yes (6) CAD (coronary artery disease) Is this a current diagnosis for this admission?: Yes (7) CKD (chronic kidney disease), stage III Is this a current diagnosis for this admission?: Yes (8) Diabetes mellitus type 2 in nonobese Is this a current diagnosis for this admission?: Yes (9) Dyslipidemia Is this a current diagnosis for this admission?: Yes (10) JESSICA (obstructive sleep apnea) Is this a current diagnosis for this admission?: Yes (11) Aortic stenosis Is this a current diagnosis for this admission?: Yes (12) Carotid atherosclerosis Is this a current diagnosis for this admission?: Yes - Additional Information Resuscitation Status: Full Code Discharge Diet: Cardiac Discharge Activity: Activity As Tolerated, Balance Activity w/Rest Home Medications: Amiodarone HCl [Cordarone 200 mg Tablet] 200 mg PO DAILY 02/28/17 Atorvastatin Calcium [Lipitor 10 mg Tablet] 10 mg PO QHS 02/28/17 Escitalopram Oxalate [Lexapro] 20 mg PO DAILY 02/28/17 Levothyroxine Sodium [Synthroid 0.15 mg Tablet] 150 mcg PO DAILY 02/28/17 Mirabegron [Myrbetriq] 50 mg PO Q2D 02/28/17 Oxycodone HCl [Oxy-Ir 5 mg Tablet] 5 mg PO Q6HP PRN 02/28/17 Rivaroxaban [Xarelto 10 mg Tablet] 10 mg PO DAILY 02/28/17 Zolpidem Tartrate [Ambien] 10 mg PO QHS 02/28/17 Amox Tr/Potassium Clavulanate [Augmentin 875-125 mg Tablet] 1 tab PO BID #8 tablet 03/02/17 Additional Information: Follow-up final report of urine cultures outpatient with primary care physician. Follow-up with [facility] for event recorder. 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 Patient has been discussed with emergency room physician who evaluated the patient. Patient is oriented to the location and year, but is not quite certain why he is in the emergency room. He also seems a bit confused on occasion with basic questions and is able to provide no history whatsoever in terms of acute events. In terms of review of systems, personal habits, family history, etc., daughter is present at his side, with his approval, and does provide additional and corroborating information to some questions. Old inpatient records are reviewed. Patient was doing quite well this morning, and his usual state of affairs. Apparently sometime this afternoon, he went in to take a shower. When he did not come out of the bathroom for a time, daughter knocked on the bathroom door to check on him. When he did not respond, she entered the bathroom and found him "collapsed" in the shower, with approximately a 15 minute episode of "shaking." No fecal or urinary incontinence. No tongue biting. No outward evidence of tonic-clonic seizure activity. No seizure history. 2 episodes of diarrhea approximately 24 hours ago. Has chronic mild dysuria from prior external beam radiation treatment of prostate cancer in the . However, no nausea vomiting, or fever. No headache, chest or abdominal pain. Daughter feels that he is almost back to his usual self, so to speak. , who was present earlier, but has since gone home, thinks that patient may have taken his Ambien instead of his oxycodone, which he takes for chronic back pain. Patient manages his own medications at home. No tobacco use since the . Denies illicit drug use. However, does admit to drinking probably a bottle of wine every day; recently may have switched to the bigger bottles of wine. Hospitalized on our service March 21- of last year, with discharge diagnoses including revision of periprosthetic fracture, left femur. History and physical and discharge summary have been reviewed. Of note, he is status post bilateral total hip replacement, with subsequent infection of both prostheses, necessitating removal and revision. Apparently was hospitalized for a number of months, in the intensive care unit, severely ill due to the infection. Currently resting quietly, without specific complaint. Hospital Course Hospital Course: The patient was admitted to observation with telemetry. Workup included echocardiogram showing no significant aortic stenosis nor any valvular stenosis. MRI of the brain did not reveal any acute stroke. Patient is an initial head CT scan was negative for acute abnormality. Patient was placed on her medication amiodarone, as well as aspirin. He initially presented with hyperkalemia and this was corrected. His AURA inhibitor was discontinued. No significant arrhythmia was noted on telemetry benjamin. He was resumed by on his Xarelto. Patient reports that aspirin intake causes a lot of bruises and therefore this was discontinued. He had a recent carotid Doppler done showing 50-69% stenosis in the right but there is retrograde flow of the vertebral artery on the left as described questionable subclavian steal. The patient was informed about the findings. He wanted to go home and continue workup on an outpatient basis. He was advised to have an event recorder as well as a vascular surgery evaluation on an outpatient basis. Physical Exam Vital Signs: Temp Pulse Resp BP Pulse Ox 98.2 F 68 18 139/54 H 100 03/02/17 12:00 03/02/17 12:00 03/02/17 12:00 03/02/17 12:00 03/02/17 12:00 Intake & Output 03/01/17 03/02/17 03/03/17 06:59 06:59 06:59 Intake Total 200 1573 Output Total 400 950 Balance -200 623 Weight 77.4 kg General appearance: PRESENT: no acute distress, cooperative Head exam: PRESENT: atraumatic, normocephalic Eye exam: PRESENT: EOMI Mouth exam: PRESENT: moist, neck supple Neck exam: ABSENT: JVD Respiratory exam: PRESENT: clear to auscultation neeta Cardiovascular exam: PRESENT: RRR GI/Abdominal exam: PRESENT: soft. ABSENT: distended Extremities exam: ABSENT: pedal edema Neurological exam: PRESENT: alert, awake, oriented to person, oriented to place , oriented to time, oriented to situation Skin exam: PRESENT: dry, warm. ABSENT: cyanosis Results Laboratory Results: 03/01/17 03:23 03/01/17 03:23 02/28/17 03/01/17 21:28 03:23 Troponin I 0.053 0.060 Impressions: Chest X-Ray 02/28/17 13:48 IMPRESSION: NO ACUTE RADIOGRAPHIC FINDING IN THE CHEST. Head CT 02/28/17 15:09 IMPRESSION: CHRONIC CHANGES OF ATROPHY AND MICROVASCULAR ISCHEMIA. NO ACUTE PROCESS. Head MRI 03/01/17 00:00 IMPRESSION: ATROPHY AND CHRONIC MICRO-VASCULAR ISCHEMIC CHANGES. OTHERWISE NORMAL MRI OF THE BRAIN WITHOUT INTRAVENOUS GADOLINIUM CONTRAST. Qualifiers PATEINT BEING DISCHARGED WITH ANY OF THE FOLLOWING DIAGNOSIS?: No Plan Discharge Plan: Follow-up with primary care physician in 1 week. Follow-up with [facility] in [place] in 1-2 weeks. Follow-up with vascular surgery in 2 weeks. Time Spent: Less than 30 Minutes
== END 2017-03-02 13:29 | disposition home or self-care (01) ==
LOC: ER 13:44 → UNDOADMOB 19:48 → EH 19:48 → 3N 03-01 01:00
PROVIDERS: ADMIT Family Medicine; ATTEND Family Medicine
DX: R55 Syncope and collapse (principal); N39.0 Urinary tract infection, site not specified; D64.9 Anemia, unspecified; R94.6 Abnormal results of thyroid function studies; I48.91 Unspecified atrial fibrillation; I25.10 Atherosclerotic heart disease of native coronary artery without angina pectoris; E11.22 Type 2 diabetes mellitus with diabetic chronic kidney disease; N18.3 Chronic kidney disease, stage 3 (moderate); E78.5 Hyperlipidemia, unspecified; G47.33 Obstructive sleep apnea (adult) (pediatric); I35.0 Nonrheumatic aortic (valve) stenosis; I65.21 Occlusion and stenosis of right carotid artery; R19.7 Diarrhea, unspecified; G89.29 Other chronic pain; M54.9 Dorsalgia, unspecified; E87.5 Hyperkalemia; R25.1 Tremor, unspecified; M25.552 Pain in left hip; M25.652 Stiffness of left hip, not elsewhere classified; G93.40 Encephalopathy, unspecified; R74.8 Abnormal levels of other serum enzymes; R20.8 Other disturbances of skin sensation; N17.9 Acute kidney failure, unspecified; Z96.643 Presence of artificial hip joint, bilateral; T66.XXXA Radiation sickness, unspecified, initial encounter; R30.0 Dysuria; Y84.2 Radiological procedure and radiotherapy as the cause of abnormal reaction of the patient, or of later complication, without mention of misadventure at the time of the procedure; Z85.46 Personal history of malignant neoplasm of prostate; Z72.89 Other problems related to lifestyle; Z79.02 Long term (current) use of antithrombotics/antiplatelets; Z86.14 Personal history of Methicillin resistant Staphylococcus aureus infection; Z79.899 Other long term (current) drug therapy; Z79.891 Long term (current) use of opiate analgesic; Z82.0 Family history of epilepsy and other diseases of the nervous system
CPT/HCPCS: 93005; 99285; 96360; 96361; 36415 ×2; 87040; 87086; 84439; 82962 ×2; 80307 ×2; 83735; 84443; 85025 ×2; 85610; 80048 ×2; 80053; 81001; 84484 ×2; 82803; 83605; 80061; 93306; 70551; 71010; 70450; 93010; 97163; 92610; 97166; A9270 ×23; J3490; J3411; J7030 ×2; J0696; G8978; G8979; G8980; G8996; G8997; G8998; G8987; G8988; G8989; G0378